=== PATIENT | female | born 1995 | race Caucasian/White ===

== ENCOUNTER → 2019-07-19 08:47 | Outpatient (BNVA) | payer MEDICAID, SELFPAY | PROVIDERS: PCP Obstetrics & Gynecology; Visit Provider Nurse Practitioner Women's Health | DX: O16.3 Unspecified maternal hypertension, third trimester (principal) | CPT/HCPCS: 81000; 84156 ==

== ENCOUNTER → 2019-07-30 09:31 | Outpatient (BNVA) | payer MEDICAID, SELFPAY | PROVIDERS: PCP Obstetrics & Gynecology; Visit Provider Obstetrics & Gynecology | DX: Z34.90 Encounter for supervision of normal pregnancy, unspecified, unspecified trimester (principal) | CPT/HCPCS: 81003 ==

== ENCOUNTER → 2019-08-07 08:51 | Outpatient (BNVA) | payer MEDICAID, SELFPAY | PROVIDERS: PCP Obstetrics & Gynecology; Visit Provider Obstetrics & Gynecology | DX: Z34.90 Encounter for supervision of normal pregnancy, unspecified, unspecified trimester (principal) | CPT/HCPCS: 84315 ==

== ENCOUNTER → 2019-08-10 13:30 | Outpatient (BNVA) | payer MEDICAID, SELFPAY | PROVIDERS: PCP Obstetrics & Gynecology; Referring Provider Obstetrics & Gynecology; Visit Provider Nurse Practitioner Women's Health | DX: Z01.89 Encounter for other specified special examinations (principal) | CPT/HCPCS: 81000; 84315 ==

== ENCOUNTER 2019-08-12 10:22 | Observation (INO) | payer MEDICAID, SELFPAY ==
[2019-08-12] VITALS (28 sets, daily range): BP systolic 0–189; BP diastolic 0–100; PULSE 79–102; RESP 16–18; TEMP 36.8; O2SAT 96–97; BMI 37.5
--- NOTE | 2019-08-12 08:49 | USR_ITS ---
PROCEDURE INFORMATION: Exam: US Biophysical Profile Without Non-Stress Test Exam date and time: 08/12/2019 10:05 AM Age: 23 years old Clinical indication: Other: Hypertension; TECHNIQUE: Imaging protocol: US biophysical profile without non-stress testing. COMPARISON: US OB F/U w BPP wo NST 08/07/2019 10:21 AM Findings: Limited study is submitted for biophysical profile. Live intrauterine gestation is present in cephalic presentation and with heart rate 157 bpm. biophysical profile score is 8 out of 8. Largest demonstrated pocket of amniotic fluid measures about 2.5 x 2.3 cm. Visualized placenta projects posterolaterally on right and demonstrates a grade 2 appearance. Cervix is not clearly demonstrated. US/US OB BPP wo NST [id number] Impression: biophysical profile score is 8 out of 8. Other findings as discussed above.
--- NOTE | 2019-08-12 09:05 | PC.NURSE ---
apple juice given
[2019-08-12 09:24] LABS: Add Urine Microscopic? YES; Bilirubin Urine Neg (NEGATIVE); Blood Urine Neg (Negative); Glucose Urine UA Norm (Normal); Ketones Urine Negative (Negative); Leukocyte Esterase Urine Negative (Negative); Nitrate Urine Negative (Negative); Protein Urine 2+ (Negative); Specific Gravity, Urine 1.015 (1.005-1.030); Urine Appearance Clear (CLEAR); Urine Color Yellow (Yellow); Urobilinogen Urine Norm (Negative); pH Urine 5 (5-7)
[2019-08-12 09:27] LABS: Bacteria Urine 2+; Squamous Epithelial Cell Urine 15-25 (0-5); WBC Urine 0-4 /hpf (0-5)
[2019-08-12 09:28] LABS: Mucus Urine 1+
[2019-08-12 09:29] LABS: Add Urine Culture? No
[2019-08-12] MEDS: acetaminophen 325 mg Tablet 650 MG PO (09:30)
[2019-08-12 09:32] LABS: Basophils # 0.1 10^3/uL (0.0-0.1); Basophils % 0.5 %; Eosinophils # 0.1 10^3/uL (0.0-0.8); Eosinophils % 0.7 %; Hemoglobin 14.1 g/dL (11.5-15.3); Lymphocytes # 1.4 10^3/uL (0.8-4.8); Mean Corpuscular HGB Conc 34.4 g/dL (30.0-36.0); Mean Corpuscular Hemoglobin 30.7 pg (28.0-34.0); Mean Corpuscular Volume 89.3 fL (81-99); Monocytes # 1.1 10^3/uL (0.2-0.9); Monocytes % 7.8 %; Neutrophils # 11.3 10^3/uL (1.8-7.7); Neutrophils % 80.6 %; Nucleated Red Blood Cells % 0 %; Platelet Count 183 10^3/cmm (130-400); Red Blood Count 4.59 10^6/uL (4.1-5.3); Red Cell Distribution Width 12.6 % (12.1-15.1)
[2019-08-12 09:41] LABS: Urine Creatinine 143 mg/dL (28-217)
[2019-08-12 09:46] LABS: Alanine Aminotransferase 137 U/L (0-33); Albumin Level 3.3 g/dL (3.5-5.2); Alkaline Phosphatase 150 IU/L (35-105); Anion Gap 15.3 (5-19); Aspartate Amino Transferase 225 U/L (0-32); Blood Urea Nitrogen 9 mg/dL (6-20); Calcium 9.3 mg/dL (8.5-10.5); Carbon Dioxide 23 mmol/L (22-29); Chloride 103 mmol/L (98-107); Globulin 3.4 g/dL (1.3-4.6); Glomerular Filtration Rate 103.7 mL/min (90-130); Glucose 99 mg/dL (74-109); Potassium 4.3 mmol/L (3.5-5.1); Sodium 137 mmol/L (136-145); Total Bilirubin 0.6 mg/dL (0.15-1.2); Total Protein 6.7 g/dL (6.6-8.7); Uric Acid 6.9 mg/dL (2.4-5.7)
[2019-08-12 09:54] LABS: UPRO/UCREAT Ratio 1.38 mg/mg CR; Urine Protein Random 198 mg/dL
[2019-08-12] MEDS: betamethasone susp 6 mg/mL 5 mL 12 MG IM (10:44)
[2019-08-12] MEDS: magnesium sulfate premix 20 GM/500 ML BAG IV (10:45)
[2019-08-12] MEDS: dextrose 5%-lactated ringers 1,000 ML 125 ML IV (10:45)
[2019-08-12] MEDS: magnesium sulfate premix 4 GM/100 ML PREMIX IV (10:46)
[2019-08-12] MEDS: magnesium sulfate premix 2 GM/50 ML PIGGYBACK IV (10:46)
[2019-08-12] MEDS: ampicillin 2,000 MG in sodium chloride 0.9% (plus) 50 ML 100 MG IV (11:08)
--- NOTE | 2019-08-12 11:25 | PM.OBGYPN ---
WAGE HAND Subjective Subjective: Interval history: 31-year-old female with an estimated gestational age of 35 weeks +4 days, with history of gestational hypertension, complicated by superimposed preeclampsia. Labor: Amniotic Membrane Status: Intact Monitor Mode: External Contraction Pattern: Absent Status: Category l Vitals/I&O/Wt Last Vital Signs Temp 98.2 F 08/12/19 10:16 Pulse 98 08/12/19 11:19 Resp 16 08/12/19 10:16 BP 177/90 08/12/19 11:24 Pulse Ox 96 08/12/19 11:19 08/11/19 08/12/19 08/12/19 22:59 06:59 14:59 Intake Total 446.25 / 446.25 Balance 446.25 / 446.25 Weight last 48 hrs Weight 254 lb Physical Exam Narrative: EXAM NARRATIVE: GA: Alert and oriented ?3. Lungs: Clear to auscultation bilaterally. Heart: regular rhythm and rate. Abdomen: Gravid, fundal height correlates dates, nontender. CASE PICKER: SVE; dilation: 0 cm, effacement: 0 %, station: -5, presentation: vertex, membranes: intact. Extremities: no edema, no cyanosis, no calves pain. heart tracing: Basal rate: 130s bpm, Variability: moderate, Accelerations: present, Decelerations: absent, Contractions: none. Urinary Catheter Management^: Acosta Latex Free: Cath Placed During This Visit: no Data : 08/12/19 09:27 08/12/19 09:27 Other Labs: Laboratory Tests 08/12/19 08/12/19 08/12/19 08:50 08:50 09:27 WBC 14.0 H Hgb 14.1 Hct 41.0 MPV 12.0 H Uric Acid AST ALT Alkaline Phosphatase Urine Protein 2+ H Protein/Creatinin Ratio 1.38 08/12/19 09:27 WBC Hgb Hct MPV Uric Acid 6.9 H AST 225 H ALT 137 H Alkaline Phosphatase 150 H Urine Protein Protein/Creatinin Ratio Attestation for Other Data: I personally reviewed and interpreted the following: Other data: A&P Assessment and plan (1) Chronic hypertension with superimposed preeclampsia: 23-year-old female with an EGA of 35+4 weeks, care complicated by gestational hypertension, now with superimposed preeclampsia. Treated with steroids for fetallung maturation, magnesium sulfate for seizure prophylaxis. Blood pressure treated perr protocol for severe preeclampsia with labetalol. Patient was counseled regarding transferred to a higher level of care due to gestational age. [facility] L&D Dr. Gutierrez accepted the patient for transfer. The patient currently is not in active labor. NST report Run time: 20 minutes Baseline rate: normal 130s. Variability: moderate. Acceleration: present. Decelerations: absent. Interpretation: reactive NST. Biophysical profile: 04/26 Plan: Transfer pt to [facility]. Status: Acute Code(s): O11.9 - Pre-existing hypertension with pre-eclampsia, unspecified trimester Attestations Medical Necessity Statement*: in my Professional opinion admitting diagnosis Coding Level of Care Code Acute Director Of Diversity And Inclusion for g Fwd Diagnoses Chronic hypertension with superimposed preeclampsia O11.9
[2019-08-12] MEDS: labetalol 5 mg/mL SDV 20mL 20 MG IVP (11:30)
== END 2019-08-12 12:20 | disposition home or self-care (01) ==
LOC: OPOB 10:23 → OBGYN 10:28
PROVIDERS: Admitting Provider Obstetrics & Gynecology; PCP Obstetrics & Gynecology; Visit Provider Obstetrics & Gynecology
DX: O11.9 Pre-existing hypertension with pre-eclampsia, unspecified trimester (principal); Z3A.35 35 weeks gestation of pregnancy
CPT/HCPCS: 12345; 36415; 51702; 59025; 76819; 80053; 81001; 82570; 84156; 84550; 85025; 96360; 96365; 96372; 96375; 99211; G0378; J0290; J0702; J3475; J3490

== ENCOUNTER → 2023-10-28 11:41 | Outpatient (BNVA) | payer OTHER, SELFPAY | PROVIDERS: Visit Provider Family Medicine | DX: Z13.6 Encounter for screening for cardiovascular disorders (principal); F41.1 Generalized anxiety disorder; F41.0 Panic disorder [episodic paroxysmal anxiety]; Z76.89 Persons encountering health services in other specified circumstances | CPT/HCPCS: 80053; 84443; 85025 ==

== ENCOUNTER → 2024-05-03 10:29 | Outpatient (BNVA) | payer OTHER, SELFPAY | DX: R42 Dizziness and giddiness (principal) | CPT/HCPCS: 80053; 80061; 84439; 84443; 84481 ==

== ENCOUNTER 2024-09-14 11:33 | Outpatient (CLI) | payer OTHER, SELFPAY ==
--- NOTE | 2024-09-14 11:00 | MR_ITS ---
WS: [id number] MRI BRAIN WITH AND WITHOUT CONTRAST HISTORY: R51.9 - Headache, unspecified COMPARISON: None available. TECHNIQUE: Multiplanar imaging performed through the brain with MultiHance 20 ml's IV. No acute infarcts are seen. Rodríguez-white matter differentiation is well preserved. Incidental note is made of bilateral petrous apex cephaloceles. These are typically asymptomatic and of no clinical concern. No susceptibility artifacts or prior lacunar infarcts. Ventricles and extra-axial spaces are normal. Empty sella turcica. Pituitary gland is in the bottom of the sella turcica. No deviation of the optic chiasm. Visualized posterior fossa and brainstem are also normal. Postcontrast images are negative for masses or vascular malformations. Dural venous sinuses are normal. Paranasal sinuses: Bilateral mucous retention cysts in the maxillary sinuses. No air-fluid levels. Mastoid air cells: Normal. Calvarium and scalp: Normal. MR/MR head wo/w con [id number] IMPRESSION: 1. No acute infarct or prior infarct. 2. No volume loss or signal abnormalities throughout the brain. 3. Empty sella turcica, incidental finding. 4. Bilateral mucous retention cysts in the maxillary sinuses . 5. No intracranial mass or vascular malformation.
[2024-09-14] MEDS: gadobenate dimeglumine 20 mL vial IV (12:46)
== END 2024-09-14 11:34 | disposition home or self-care (01) ==
PROVIDERS: Visit Provider Psychiatry & Neurology Neurology
DX: R51.9 Headache, unspecified (principal); G89.29 Other chronic pain; E23.6 Other disorders of pituitary gland; M27.40 Unspecified cyst of jaw; R93.0 Abnormal findings on diagnostic imaging of skull and head, not elsewhere classified
CPT/HCPCS: 70553